=== PATIENT | female | born 1990 | race Caucasian/White ===

== ENCOUNTER 2020-02-27 10:54 | Emergency (ER) | payer SELFPAY ==
[~2020-02-27] VITALS: Ht 162.6 cm; Wt 94.3 kg
--- NOTE | 2020-02-27 11:23 | Emergency Department Note ---
History of Present Illnes History of Present Illness Chief Complaint: General Medicine Complaints History of Present Illness This is a 29 year old female that felt that her hands were getting a rash so she bought [id number] Benadryl and took a tablet 1 hour prior to arrival. Patient since then felt some flushing, tingling in her hands and face and continued to refuse quickly. She came here for concern about an allergic reaction. Pt is otherwise at baseline. Historian: Patient Arrival Mode: Car Additional Treatment AUDIO PRODUCTION MANAGER: NONE Onset (how long ago): hour(s) Location: hands and face Radiation: Reports non-radiation Severity: moderate Duration (how long): hour(s) (1) Timing of current episode: constant Progression: worsening Relieving factors: none Exacerbating factors: none Associated symptoms: Reports rash; Denies fever/chills, Denies headaches Past Medical/Family History Physician Review I have reviewed the patient's past medical and family history. Any updates have been documented here. Past Medical History Recent Fever: No Clinical Suspicion of Infectio: No New/Unexplained Change in Ment: No Review of Systems Review of Systems Constitutional: Reports as per HPI EENTM: Reports no symptoms Cardiovascular: Reports no symptoms Respiratory: Reports no symptoms Gastrointestinal: Reports no symptoms Genitourinary: Reports no symptoms Musculoskeletal: Reports no symptoms Integumentary: Reports as per HPI Neurological: Reports no symptoms Psychological: Reports anxiety; Denies emotional problems Endocrine: Reports no symptoms Hematological/Lymphatic: Reports no symptoms Physical Exam Related Data Allergies: Coded Allergies: No Known Allergies (Unverified , 02/27/20) Triage Vital Signs Vital Signs Date Time Temp Pulse Resp B/P (MAP) Pulse Ox O2 Delivery O2 Flow Rate FiO2 02/27/20 11:15 97.5 115 20 173/101 100 Room Air Vital signs reviewed: Yes Physical Exam CONSTITUTIONAL Constitutional: Present well-developed, Present well-nourished, Present other (anxious, hyperventilating ) HENT HENT: Present normocephalic, Present atraumatic, Present oropharynx cl ear/moist, Present nose normal HENT L/R: Present left ext ear normal, Present right ext ear normal EYES Eyes: Reports PERRL, Reports conjunctivae normal NECK Neck: Present ROM normal PULMONARY Pulmonary: Present effort normal, Present breath sounds normal CARDIOVASCULAR Cardiovascular: Present regular rhythm, Present heart sounds normal, Present capillary refill normal, Present tachycardia GASTROINTESTINAL Abdominal: Present soft, Present nontender, Present bowel sounds normal GENITOURINARY Genitourinary: Present exam deferred SKIN Skin: Present warm, Present dry; Absent rash MUSCULOSKELETAL Musculoskeletal: Present ROM normal NEUROLOGICAL Neurological: Present alert, Present oriented x 3, Present no gross motor or se nsory deficits PSYCHOLOGICAL Psychological: Present mood/affect normal, Present judgement normal Assessment & Plan Medical Decision Making MDM Patient's a 29-year-old female that had erythema on bilateral hands, but there was an allergic reaction so she took some Benadryl. Patient since then with some facial flushing and she started hyperventilating. Patient since that very nauseous had one episode of emesis and is here for treatment. Vision and exam very anxious and tachycardic hyperventilating. Reassured that we have no heart signs of a severe allergic reaction, we'll observe in the emergency department and treat her symptomatically. Reassessment Reassessment At 1:40 PM patient reassessed, again no evidence of allergic reaction, no nausea no vomiting no more hyperventilation. Hypokalemia likely secondary to hyperventilation no need to repeat at this time. No warnings given all results explained. Assessment & Plan Final Impression: (1) Panic attack (2) Nausea & vomiting Depart Disposition: HOME, SELF-CARE Last Vital Signs Date Time Temp Pulse Resp B/P (MAP) Pulse Ox O2 Delivery O2 Flow Rate FiO2 02/27/20 11:15 97.5 115 20 173/101 100 Room Air Home Meds Active Scripts Ondansetron Hcl* (ZOFRAN*) 4 Mg Tablet, 4 MG PO Q6H PRN for nausea, #20 TAB Prov:KAVON WU MD 02/27/20 KAVON WU MD Feb 27, 2020 11:23
[2020-02-27] MEDS: ONDANSETRON HCL 4 MG ORAL DISINTEGRATING TAB PO ONE (11:43)
[2020-02-27] MEDS: DIAZEPAM 5 MG TAB PO ONE (11:43)
[2020-02-27] MEDS: LACTATED RINGER'S 1,000 ML INJ ONE (12:39)
[2020-02-27] MEDS: METOCLOPRAMIDE HCL 10 MG/2ML VIAL IV ONE (12:40)
[2020-02-27 12:58] LABS: BASOPHILS % 0.4 % (0.0-1.0); EOSINOPHILS # (AUTO) 0.1 (0.0-0.4); EOSINOPHILS % 0.6 % (0.0-6.0); HEMATOCRIT 39.2 % (34.2-44.1); HEMOGLOBIN 13.5 g/dL (12.0-16.0); LYMPHOCYTES # (AUTO) 2.5 (1.0-3.2); LYMPHOCYTES % 22.5 % (18.0-39.1); MEAN CORPUSCULAR HEMOGLOBIN 30.4 pg (28-32); MEAN CORPUSCULAR HGB CONC 34.4 g/dL (31-35); MEAN CORPUSCULAR VOLUME 88.3 fL (81-99); MONOCYTES # (AUTO) 0.9 (0.2-0.8); MONOCYTES % 8.3 % (4.4-11.3); NEUTROPHILS # (AUTO) 7.5 (2.1-6.9); NEUTROPHILS % 67.9 % (38.7-80.0); PLATELET COUNT 278 x10e3/uL (140-360); RED BLOOD COUNT 4.44 x10e6/uL (3.6-5.1); RED CELL DISTRIBUTION WIDTH 11.8 % (11.7-14.4)
[2020-02-27 13:23] LABS: ALANINE AMINOTRANSFERASE 12 IU/L (0-55); ALBUMIN 4.7 g/dL (3.5-5.0); ALBUMIN/GLOBULIN RATIO 1.5 (0.8-2.0); ALKALINE PHOSPHATASE 70 IU/L (40-150); BLOOD UREA NITROGEN 7 mg/dL (7-26); BUN/CREATININE RATIO 9 (6-25); CALCIUM 9.8 mg/dL (8.4-10.2); CARBON DIOXIDE 22 mmol/L (22-29); CHLORIDE 104 mmol/L (98-107); CREATININE, SERUM 0.74 mg/dL (0.57-1.11); EST GLOMERULAR FILTRATION RATE > 60 ML/MIN (60-); GLUCOSE 103 mg/dL (74-118); SODIUM 139 mmol/L (136-145)
[2020-02-27] MEDS ORDERED: ZOFRAN4 MG PO (13:37)
[2020-02-27 14:26] VITALS: BP 131/81
== END 2020-02-27 13:50 | disposition home or self-care (01) ==
LOC: ER 11:24
DX: F41.0 Panic disorder [episodic paroxysmal anxiety] (principal); R11.2 Nausea with vomiting, unspecified
CPT/HCPCS: 36415; 80053; 85025; 99284; J2765; J7121; Q0162